=== PATIENT | female | born 1985 | race Caucasian/White ===

== ENCOUNTER → 2017-05-07 13:54 | Outpatient (CLI) | payer OTHER, SELFPAY ==
[2017-05-07 14:27] LABS: hCG Titer Quant., Serum 252 mIU/mL (<9 non-preg)
== END ==
PROVIDERS: Visit Provider Obstetrics & Gynecology
DX: O20.0 Threatened abortion (principal); Z3A.00 Weeks of gestation of pregnancy not specified
CPT/HCPCS: 36415; 84702

== ENCOUNTER → 2017-09-02 16:47 | Outpatient (CLI) | payer OTHER, SELFPAY ==
[2017-09-02 20:05] LABS: Chlamydia Trachomatis by PCR Negative (Negative); Neisserai gonorrhoeae by PCR Negative (Negative); Probe Check PASS; Sample Adequacy Control PASS; Specimen Processing Control PASS
== END ==
PROVIDERS: Visit Provider Obstetrics & Gynecology
DX: Z11.3 Encounter for screening for infections with a predominantly sexual mode of transmission (principal)
CPT/HCPCS: 87491; 87591

== ENCOUNTER → 2017-10-01 16:34 | Outpatient (CLI) | payer OTHER, MEDICAID, SELFPAY ==
[2017-10-01 17:38] LABS: Absolute Lymphocyte Count 3.02 X10^3/ul (0.83-4.51); Absolute Neutrophil Count 9.1 X10^3/uL (2.0-7.7); Basophil# 0.04 X10^3/uL; Basophil% 0.3 % (0-1); Eosinophil# 0.25 X10^3/uL; Eosinophils% 1.9 % (0-5); Hematocrit 38.5 % (37-47); Lymphocyte # 3.02 X10^3/ul (4.0); Lymphocyte % 22.9 % (19-41); Mean Corp Hgb Conc 33.8 g/gl (32-36); Mean Corpuscular Hgb 31.7 pg (27.0-32.0); Mean Corpuscular Volume 93.9 fL (81-99); Mean Platelet Vol. 10.7 fl (6.2-12.0); Monocyte# 0.73 X10^3/uL; Monocyte% 5.5 % (0-10); Platelet Count 252 K/mm3 (150-450); RBC Distribution Width CV 13.3 % (11.6-14.6); White Blood Count 13.2 K/mm3 (4.4-11.0)
[2017-10-01 17:39] LABS: POSITIVE COUNT NO; POSITIVE DIFFERENTIAL NO; POSITIVE MORPHOLOGY NO
[2017-10-01 17:58] LABS: Amphetamine Urine VISTA NEGATIVE (<1000 ng/mL); Barbiturate Urine VISTA NEGATIVE (< 200 ng/mL); Benzodiazepine Urine VISTA NEGATIVE (< 200 ng/mL); Cocaine Urine VISTA NEGATIVE (< 300 ng/mL); Ecstacy Urine VISTA NEGATIVE (< 500 ng/mL); Methadone Urine VISTA NEGATIVE (< 300 ng/mL); PCP Urine VISTA NEGATIVE (< 25 ng/mL); THC Urine VISTA NEGATIVE (< 50 ng/mL); Vista UDS pH Range 6
[2017-10-01 18:05] LABS: Hemoglobin A1c 4.7 % (4.2-6.3)
[2017-10-01 18:08] LABS: Glucose, Dipstick Normal (Normal); Ketone-Dipstick 5 mg/dl (Negative); Leukocyte Esterase-Dipstick 25 /ul (Negative); Nitrite-Dipstick Negative (Negative); Occult Blood-Urine Negative /ul (Negative); Protein-Dipstick 15 mg/dl (Negative); Specific Gravity, Urine 1.025 (1.002-1.030); Urine Bilirubin Dipstick Negative (Negative); Urine Urobilinogen Normal (Normal)
[2017-10-01 18:09] LABS: Thyroid Stim Hormone (TSH) 1.45 uIU/mL (0.358-3.74)
[2017-10-01 18:26] LABS: Color, Urine Yellow (Yellow); Urine Clarity Sl. Cloudy (Clear)
[2017-10-01 19:08] LABS: COTININE Drug Screen Positive (<200 ng/mL)
[2017-10-02 14:01] LABS: HIV - WCH Non-Reactive (Nonreactive); Rubella IgG > 500.0 IU/mL; Vitamin D,25 Hydroxy 18.4 ng/mL (29.95-100.01)
[2017-10-03 08:41] LABS: HEPATITIS B SURFACE AG Negative (Negative); Hep C Antibodies 0.2 s/co ratio (0.0-0.9)
[2017-10-04 03:58] LABS: Prenatal RPR NONREACTIVE (NONREACTIVE)
== END ==
PROVIDERS: Visit Provider Obstetrics & Gynecology
DX: Z34.81 Encounter for supervision of other normal pregnancy, first trimester (principal)
CPT/HCPCS: 36415; 80307; 81002; 82306; 83036; 84443; 85025; 86703; 86762; 86803; 87340

== ENCOUNTER → 2018-01-21 14:26 | Outpatient (CLI) | payer OTHER, MEDICAID, SELFPAY ==
[2016-08-18 12:03] VITALS: BMI 34.3
[2018-01-21 18:00] LABS: Hematocrit 37.6 % (37-47); Hemoglobin 12.3 g/dl (12.0-15.0); Mean Corp Hgb Conc 32.7 g/gl (32-36); Mean Corpuscular Hgb 31.8 pg (27.0-32.0); Mean Corpuscular Volume 97.2 fL (81-99); Platelet Count 281 K/mm3 (150-450); RBC Distribution Width CV 13.9 % (11.6-14.6); RBC Distribution Width SD 47.7 fl (35.1-43.9); Red Blood Count 3.87 M/mm3 (4.2-5.4); White Blood Count 17.4 K/mm3 (4.4-11.0)
[2018-01-21 18:01] LABS: Glucose Challenge Gest 1H 50g 70 mg/dL (70-140); Scan Indicated on CBC? Y/N NO
--- OUTSIDE RECORDS SUMMARY | 2018-03-09 20:14 | XMS RPT_ITS ---
:1985 Author Organization [place] Care Team Providers Name Role Phone PROVIDER, UNKNOWN Referring Unavailable No, PCP Primary Care Unavailable [facility] Attending Unavailable Gisele Yeh Attending Unavailable Gisele Yeh Attending Unavailable Gisele Yeh Attending Unavailable Gisele Yeh Attending Unavailable PROBLEMS PROBLEMS DATE TYPE CONDITION / CODE ATTENDING STATUS SOURCE 01/21/2018 Unknown Z34.83 - Encounter Vini Yeh for supervision of [facility] other normal Hospital , third Repository trimester / Z34.83(ICD-10) 12/12/2017 Unknown Z34.81 - Encounter Vini Yeh for supervision of [facility] other normal Hospital , first Repository trimester / Z34.81(ICD-10) 09/02/2017 Unknown Z11.3 - Encounter Vini Yeh for screening for [facility] infections with a Hospital predominantly Repository sexual mode of transmission / Z11.3(ICD-10) 05/07/2017 Unknown O20.0 - Threatened Vini Yeh / [facility] O20.0(ICD-10) Hospital Repository 05/05/2017 Admitting Hemorrhage in early [facility] Diagnosis , System unspecified / Repository O20.9(ICD-10) 05/05/2017 Admitting Unsp infct of [facility] Diagnosis urinary tract in System , first Repository trimester / O23.41(ICD-10) 05/05/2017 Admitting Maternal care for [facility] Diagnosis oth abnlt of pelvic System organs, first tri / Repository O34.81(ICD-10) 05/05/2017 Admitting Unspecified ovarian Gary [facility] Diagnosis cyst, left side / System N83.202(ICD-10) Repository 05/05/2017 Admitting Less than 8 weeks [facility] Diagnosis gestation of System / Repository Z3A.01(ICD-10) 05/05/2017 Admitting Allergy to other [facility] Diagnosis foods / System Z91.018(ICD-10) Repository PROCEDURES PROCEDURES No Procedure Records FoundRESULTS RESULTS GLUCOSE CHALLENGE GEST Collected: 01/21/2018 Status: F Source: [place]IC 1H 50G 2:20 PM [facility] REPOSITORY TYPE CODE TESTS RESULT OUT OF RANGE REFERENCE UNITS LAB L501.0250 70-140 mg/dL Normal GLU GEST 70 50g 1H Performed By: #### L501.0250 #### [facility] [address] [place], [address] CBC-COMPLETE BLOOD CNT Collected: 01/21/2018 Status: F Source: [place]IC NO DIFF 2:20 PM [facility] REPOSITORY TYPE CODE TESTS RESULT OUT OF RANGE REFERENCE UNITS LAB L100.1000 4.4-11.0 K/mm3 High WBC 17.4 LAB L100.1200 4.2-5.4 M/mm3 Low RBC 3.87 LAB L100.1300 12.0-15.0 g/dl Normal HGB 12.3 LAB L100.1400 37-47 % Normal HCT 37.6 LAB L100.1500 81-99 fL Normal MCV 97.2 LAB L100.1600 27.0-32.0 pg Normal MCH 31.8 LAB L100.1700 32-36 g/gl Normal MCHC 32.7 LAB L100.1810 11.6-14.6 % Normal RDW CV 13.9 LAB L100.1820 35.1-43.9 fl High RDW SD 47.7 LAB L100.1900 150-450 K/mm3 Normal PLT 281 LAB L100.2000 6.2-12.0 fl Normal MPV 11.0 Performed By: #### L100.0500 #### [facility] [address] [place], [address] VITAMIN D,25 HYDROXY Collected: 01/21/2018 Status: F Source: PATRIC 2:20 PM [facility] REPOSITORY TYPE CODE TESTS RESULT OUT OF REFERENCE UNITS RANGE LAB L506.1000 29.95-100.01 ng/mL Low Vitamin D 18.0 25-OH Result Comment: Vitamin D 25(OH) Status Range Deficiency <20 ng/mL (50nmol/L) Insuffciency 20 - 30 ng/mL (50 - 75 nmol/L) Sufficiency 30 - 100 ng/mL (75 - 250 nmol/L) Toxicity >100 ng/mL (>250 nmol/L) Performed By: #### L506.1000 #### [facility] [address] [place], [address] URINE DRUG SCREEN Collected: 10/01/2017 Status: F Source: PATRIC (ANATA) 4:40 PM [facility] REPOSITORY Order Comment: List of Drugs Taken or Suspected? UNK TYPE CODE TESTS RESULT OUT OF RANGE REFERENCE UNITS LAB L505.0075 TO BE Normal CONFIRMED Result Comment: CONFIRMATORY TESTING FOR ALL POSITIVE URINE DRUG SCREEN RESULTS WILL ONLY BE SENT OUT UPON PHYSICIAN ORDER. HILARY Urine Drug Screen methods provide only preliminary analytical test results. A more specific alternate chemical method must be used in order to obtain a confirmed analytical result. Gas chromatography/mass spectrometery (GC/MS) is the preferred confirmatory method. Clinical consideration and professional judgement should be applied to any drug of abuse test result, particularly when preliminary positive results are used. URINE TCA TESTING MUST BE ORDERED SEPARATELY. USE TEST MNEMONIC: [facility] LAB L505.5005 VISTA UDS PH 6 Normal LAB L505.5015 <1000 ng/mL AMPHETAMINES Normal NEGATIVE LAB L505.5025 < 200 ng/mL BARBITIURATES Normal NEGATIVE LAB L505.5035 < 200 ng/mL BENZODIAZIPINE Normal NEGATIVE LAB L505.5045 < 300 ng/mL COCAINE Normal NEGATIVE LAB L505.5055 < 500 ng/mL ECSTACY Normal NEGATIVE LAB L505.5065 < 300 ng/mL METHADONE Normal NEGATIVE LAB L505.5075 < 300 ng/mL OPIATES Normal NEGATIVE LAB L505.5085 < 25 ng/mL PCP Normal NEGATIVE LAB L505.5095 < 50 ng/mL THC Normal NEGATIVE Performed By: #### L505.5000, L505.6240 #### [facility] [address] [place], [place], [id number] NICOTINE URINE DRUG Collected: 10/01/2017 Status: F Source: PATRIC SCREEN 4:40 PM [facility] REPOSITORY Order Comment: List of Drugs Taken or Suspected? UNK TYPE CODE TESTS RESULT OUT OF RANGE REFERENCE UNITS LAB L505.6250 TO BE Normal CONFIRMED Result Comment: CONFIRMATORY TESTING FOR ALL POSITIVE URINE DRUG SCREEN RESULTS WILL ONLY BE SENT OUT UPON PHYSICIAN ORDER. The results of Urine Drug Screen methods provide only preliminary analytical test results. A more specific alternate chemical method must be used in order to obtain a confirmed analytical result. Gas chromatography/mass spectrometery (GC/MS) is the preferred confirmatory method. Clinical consideration and professional judgement should be applied to any drug of abuse test result, particularly when preliminary positive results are used. LAB L505.6270 <200 ng/mL High COT DRG Positive SCREEN Result Comment: Cotinine is the first-stage metabolite of Nicotine. Performed By: #### L505.5000, L505.6240 #### [facility] [address] [place], [address] CBC W/DIFF, AUTOMATED Collected: 10/01/2017 Status: F Source: [place] 4:40 PM [facility] REPOSITORY TYPE CODE TESTS RESULT OUT OF RANGE REFERENCE UNITS LAB L100.1000 4.4-11.0 K/mm3 High WBC 13.2 LAB L100.1200 4.2-5.4 M/mm3 Low RBC 4.10 LAB L100.1300 12.0-15.0 g/dl Normal HGB 13.0 LAB L100.1400 37-47 % Normal HCT 38.5 LAB L100.1500 81-99 fL Normal MCV 93.9 LAB L100.1600 27.0-32.0 pg Normal MCH 31.7 LAB L100.1700 32-36 g/gl Normal MCHC 33.8 LAB L100.1810 11.6-14.6 % Normal RDW CV 13.3 LAB L100.1820 35.1-43.9 fl High RDW SD 44.0 LAB L100.1900 150-450 K/mm3 Normal PLT 252 LAB L100.2000 6.2-12.0 fl Normal MPV 10.7 LAB L100.2100 47-70 % Normal NEUT% 69.0 LAB L100.2200 19-41 % Normal LY% 22.9 LAB L100.2300 0-10 % Normal MONO% 5.5 LAB L100.2400 0-5 % Normal EO% 1.9 LAB L100.2500 0-1 % Normal BASO% 0.3 LAB L100.2550 0.0-0.9 % Normal IM GRAN % 0.400 Result Comment: IG% - Immature Granulocytes (promyelocytes, myelocytes and metamyelocytes) > 1% indicates that a LEFT SHIFT is Present. LAB L100.2620 2.0-7.7 X10 3/uL High Absolute Neut 9.1 LAB L100.2720 0.83-4.51 X10 3/ul Normal Absolute Lymph 3.02 Performed By: #### L100.0100 #### [facility] [address] [place], [place], [id number] HEMOGLOBIN A1C Collected: 10/01/2017 Status: F Source: [place] 4:40 PM [facility] REPOSITORY TYPE CODE TESTS RESULT OUT OF RANGE REFERENCE UNITS LAB L501.9985 4.2-6.3 % Normal HGB A1C 4.7 Performed By: #### L501.9985 #### [facility] [address] [place], [place], [address] THYROID STIM HORMONE Collected: 10/01/2017 Status: F Source: PATRIC (TSH) 4:40 PM [facility] REPOSITORY TYPE CODE TESTS RESULT OUT OF RANGE REFERENCE UNITS LAB L501.9520 0.358-3.74 uIU/mL Normal TSH 1.45 Performed By: #### L501.9520 #### [facility] [address] [place], [address] URINALYSIS, ROUTINE Collected: 10/01/2017 Status: F Source: PATRIC (DIPSTICK) 4:40 PM [facility] REPOSITORY Order Comment: How was Urine Obtained? Urine, Random TYPE CODE TESTS RESULT OUT OF RANGE REFERENCE UNITS LAB L400.3000 Yellow COLOR Normal Yellow LAB L400.3050 Clear Normal CLARITY Sl. Cloudy LAB L400.3200 Normal mg/dl Normal GLUCOSE, UR Normal LAB L400.3300 Negative mg/dL Normal BILIRUBIN URINE Negative LAB L400.3400 Negative mg/dl High 5 KETONE UR LAB L400.3465 1.002-1.030 Normal SP.GR. DIPSTX 1.025 LAB L400.3550 5.0 - 8.0 pH UR Normal 6.0 LAB L400.3600 Negative mg/dl High PROT 15 DIPSTX LAB L400.3700 Normal mg/dl Normal UROBILI Normal LAB L400.3750 Negative Normal NITRITE UR Negative LAB L400.3780 Negative /ul Normal OCCULT BLOOD-UR Negative LAB L400.3800 Negative /ul High LEUK 25 ESTERASE Performed By: #### L400.2010 #### [facility] [address] [facility] [place], [place], [address] T AND S-NO Collected: 10/01/2017 Status: F Source: PATRIC CHARGE W/PNP 4:40 PM [facility] REPOSITORY Order Comment: Reason for Type AND Screen/Red Cells: Surgery? N TYPE CODE TESTS RESULT OUT OF RANGE REFERENCE UNITS LAB B10.0800 O Normal BLOOD POSITIVE TYPE GEL LAB B100.4050 Normal Ab SCREEN NEGATIVE GEL Performed By: #### B100.7550 #### [facility] [address] [place], [address] VITAMIN D,25 HYDROXY Collected: 10/01/2017 Status: F Source: PATRIC 4:40 PM [facility] REPOSITORY TYPE CODE TESTS RESULT OUT OF REFERENCE UNITS RANGE LAB L506.1000 29.95-100.01 ng/mL Low Vitamin D 18.4 25-OH Result Comment: Vitamin D 25(OH) Status Range Deficiency <20 ng/mL (50nmol/L) Insuffciency 20 - 30 ng/mL (50 - 75 nmol/L) Sufficiency 30 - 100 ng/mL (75 - 250 nmol/L) Toxicity >100 ng/mL (>250 nmol/L) Performed By: #### L506.1000, L509.4000, L3890.6005 #### [facility] [address] [place], [address] RUBELLA IGG Collected: 10/01/2017 Status: F Source: [place] 4:40 PM [facility] REPOSITORY TYPE CODE TESTS RESULT OUT OF RANGE REFERENCE UNITS LAB L509.4000 IU/mL Normal Rubella IgG > 500.0 Result Comment: Antibody results Interpretation of Immune Status < 5 IU/ml Presumed Non-immune 5 - < 10 IU/ml Equivocal > or = 10 IU/ml Presumed Immune Performed By: #### L506.1000, L509.4000, L3890.6005 #### [facility] [address] [place], [address] HIV - [facility] Collected: 10/01/2017 Status: F Source: PATRIC 4:40 PM [facility] REPOSITORY TYPE CODE TESTS RESULT OUT OF RANGE REFERENCE UNITS LAB L3890.6005 Nonreactive Normal HIV - [facility] Non-Reactive Performed By: #### L506.1000, L509.4000, L3890.6005 #### [facility] [address] [place], [address] HEPATITIS B SURFACE Collected: 10/01/2017 Status: F Source: PATRIC AG 4:40 PM [facility] REPOSITORY TYPE CODE TESTS RESULT OUT OF RANGE REFERENCE UNITS LAB L3100.0400 Negative Normal HB Negative SURF AG Result Comment: Performed at: [facility] [id number] Sales Support Engineer: Rodrigo Bowman PhD, Phone: [phone] Performed By: #### L3100.0390, L3100.0625 #### [facility] (refer to report for specific site) refer to report for address and phone number HEPATITIS C ANTIBODIES Collected: 10/01/2017 Status: F Source: PATRIC 4:40 PM [facility] REPOSITORY TYPE CODE TESTS RESULT OUT OF RANGE REFERENCE UNITS LAB L3100.0650 0.0-0.9 s/co ratio Normal HEP C AB 0.2 Result Comment: Negative: < 0.8 Indeterminate: 0.8 - 0.9 Positive: > 0.9 The CDC recommends that a positive HCV antibody result be followed up with a HCV Nucleic Acid Amplification test (759365). Performed By: #### L3100.0390, L3100.0625 #### [facility] (refer to report for specific site) refer to report for address and phone number RPR Collected: 10/01/2017 Status: F Source: [place] 4:40 PM [facility] REPOSITORY TYPE CODE TESTS RESULT OUT OF REFERENCE UNITS RANGE LAB L700.5100 NONREACTIVE Normal RPR NONREACTIVE Performed By: #### L700.5100 #### [facility] [address] [facility] [place], [place], [address] CT/NG [facility] BY PCR Collected: 09/02/2017 Status: F Source: [place] 3:55 PM [facility] REPOSITORY TYPE CODE TESTS RESULT OUT OF RANGE REFERENCE UNITS LAB L8200.2100 Negative Normal Chlam Negative Trac PCR LAB L8200.2200 Negative Normal NG by Negative PCR Performed By: #### L8200.2000 #### [facility] [address] [facility] [place], [address] HCG TITER QUANT., Collected: 05/07/2017 Status: F Source: [place] SERUM 1:56 PM [facility] REPOSITORY TYPE CODE TESTS RESULT OUT OF RANGE REFERENCE UNITS LAB L700.8000 <9 non-preg mIU/mL High HCG 252 QUANT. Performed By: #### L700.8000 #### [facility] [address] [place], [address] US Observed: 05/05/2017 Status: F Source: [employer] TRANSVAGINAL 6:10 PM SYSTEM REPOSITORY Patient Name: PAMELA NORTON Ultrasound Exam Date/Time 05/05/2017 18:07:18 EDT Exam US Transvaginal Ordering Physician ARABELLA PASTOR NICOLE A Accession Number [id number] CPT4 Codes 69139 () Reason For Exam vaginal bleeding Report ULTRASOUND PELVIS: CLINICAL INDICATION: Positive test, vaginal bleeding. Quantitative beta hCG of 922. LMP: 03/14/2017 COMPARISON: none TECHNIQUE: Transvaginal evaluation of the pelvis including color flow and spectral Doppler imaging FINDINGS: Uterus: Orientation: Anteverted Size: 7.8 x 4.1 x 4.0 cm Endometrium: 7 mm. There is no evidence of an intrauterine or gestational sac Mass: none Cervix: normal Right Ovary: Size: 2.9 x 1.8 x 1.7 cm Mass: none Cyst: Small cyst measuring 2.1 x 1.6 x 1.3 cm Color flow/Doppler waveform: normal Left Ovary: Size: 2.2 x 2.0 x 1.5 cm Mass: none Cyst: Small hypoechoic lesion measuring 1.4 x 1.3 x 1.1 cm likely representing a hemorrhagic or corpus luteum cyst. Color flow/Doppler waveform: normal Cul-de-sac: No free fluid IMPRESSION: 1. No evidence of intrauterine . Given the quantitative beta hCG levels, these findings are suspicious for failed first trimester , however a very early or nonvisualized ectopic is not excluded. Follow-up quantitative beta hCG levels in 48 hours is recommended. 2. Small left hemorrhagic versus corpus luteum cyst. Report Dictated on Final Dictated: 05/05/2017 6:10 pm Dictating Physician: MD HUIZAR NICHOLAS Signed Date and Time: 05/05/2017 6:13 pm Signed by: MD HUIZAR NICHOLAS Transcribed Date and Time: 05/05/2017 6:10 COMP METABOLIC PANEL Collected: 05/05/2017 Status: F Source: [employer] 4:09 PM SYSTEM REPOSITORY TYPE CODE TESTS RESULT OUT OF REFERENCE UNITS RANGE LAB NA3 137-145 mmol/L Sodium 143 LAB K3 3.5-5.1 mmol/L Potassium 4.3 LAB CL3 98-107 mmol/L Chloride High 108 LAB CO23 22-30 mmol/L Carbon Dioxide 25 LAB ANIN3 Anion Gap 10 LAB GLUC3 70-100 mg/dL Glucose 94 LAB BUN3 7-20 mg/dL Urea Nitrogen 14 LAB CRET3 0.52-1.25 mg/dL Creatinine 0.69 LAB GF3BR >60 mL/min eGFR >60.0 LAB GF3WR >60 mL/min eGFR OTHER >60.0 Result Comment: Source- MDRD equation with creatinine calibration to IDMS(NKDEP) eGFR not recommended for drug dose adjustment LAB CA3 8.4-10.2 mg/dL Calcium 9.1 LAB ALB3 3.5-5.0 g/dL Albumin, Serum 4.1 LAB TP3 6.3-8.2 g/dL Total Protein 7.2 LAB BILT3 0.2-1.3 mg/dL Bilirubin,Total 0.5 LAB ALKP3 38-126 U/L Alkaline Phosphatase 67 LAB ALT3 13-69 U/L ALT (SGPT) 30 LAB AST3 15-46 U/L AST (SGOT) 25 Performed By: #### CMP3, HEMDF, QWNT #### The performing lab is in the report. HEMOGRAM W/ AUTODIFF Collected: 05/05/2017 Status: F Source: [employer] 4:09 PM SYSTEM REPOSITORY TYPE CODE TESTS RESULT OUT OF REFERENCE UNITS RANGE LAB IWBC 3.6-10.7 10*3/uL WBC High 10.9 LAB RBC 3.80-5.20 10*6/uL RBC 4.42 LAB HGB 11.7-16.0 g/dL Hemoglobin 13.7 LAB HCT 35.0-47.0 % Hematocrit 41.6 LAB MCV 79.0-98.0 fL MCV 94.3 LAB MCH 26.0-34.0 pg MCH 31.0 LAB MCHC 32.0-36.0 % MCHC 32.9 LAB RDW 11.5-14.5 % RDW 13.8 LAB PLT 140-440 10*3/uL Platelet 261 LAB MPV 7.4-10.4 fL MPV 9.2 LAB GRAN% 40.0-80.0 % Granulocytes 66.6 LAB LYMP% 20.0-40.0 % Lymphocytes 25.6 LAB MONO% 2.0-10.0 % Monocytes 5.7 LAB EOS% 1.0-6.0 % Eosinophils 1.6 LAB BAS% 0.0-2.0 % Basophils 0.5 LAB ANC 1.8-7.0 10*3/uL Abs High Neutrophile Cnt 7.3 LAB ALC 1.0-4.3 10*3/uL Abs Lymph Cnt 2.8 LAB AMC 0.0-0.8 10*3/uL Abs Monocyte Cnt 0.6 LAB AEC 0.0-0.5 10*3/uL Abs Eosin Cnt 0.2 LAB ABC 0.0-0.2 10*3/uL Abs Baso Cnt 0.1 Performed By: #### CMP3, HEMDF, QWNT #### The performing lab is in the report. HCG QUANTITATIVE Collected: 05/05/2017 Status: F Source: [employer] 4:09 PM SYSTEM REPOSITORY TYPE CODE TESTS RESULT OUT OF RANGE REFERENCE UNITS LAB 3QWNT < 3 m[IU]/mL hCG Abnormal Quantitative 922 Performed By: #### CMP3, HEMDF, QWNT #### The performing lab is in the report. URINALYSIS,MACRO Collected: 05/05/2017 Status: F Source: [employer] 4:09 PM SYSTEM REPOSITORY TYPE CODE TESTS RESULT OUT OF REFERENCE UNITS RANGE LAB APPUR Clear Appearance cloudy LAB COLUR Lt. Yellow Color red LAB USG 1.005-1.030 Specific [place],Urine 1.020 LAB UPH 5.0-8.0 pH,Urine 5.0 LAB ULUK Negative Leukocytes 2+ LAB UNIT Negative Nitrites NEG LAB UPRO Negative mg/dL Total Protein,Urine 75 LAB UGLU Negative mg/dL Glucose,Urine NORM LAB UKET Negative mg/dL Ketone,Urine NEG LAB UURO 0-1 mg/dL Urobilinogen NORM LAB UBIL Negative Bilirubin,Ur NEG LAB UBLD Negative {RBC}/uL Occult Blood,Ur 250 Performed By: #### UAMAC #### The performing lab is in the report. Observed: 05/05/2017 Status: F Source: [facility] TS GEL 4:09 PM SYSTEM REPOSITORY ABO Group: O Rh, Gel: POS Antibody Screen Gel: NEG Performed By: #### TSGL #### [address] [address] Observed: 05/05/2017 Status: F Source: [facility] CULTURE URINE 4:09 PM SYSTEM REPOSITORY CULTURE URINE --> Status: F Normal urogenital ivan present. Performed By: #### C/UR #### The performing lab is in the report. ALLERGIES ALLERGIES DATE TYPE / CODE NAME / CODE REACTION SEVERITY SOURCE 08/18/2016 Drug strawberry/F Other Unknown [facility] Allergy/4160 [id number]( Hospital [address]329(SNOMED NORM) Repository CT) ENCOUNTERS ENCOUNTERS ADMIT/DISCHARGE ACCOUNT NUMBER ADMITTING ENCOUNTER LOCATION SOURCE CLASS 01/21/2018 [id number] [facility] ding:WOBLAB Repository 10/01/2017 [id number] [facility] ding:WOBLAB Repository 09/02/2017 [id number] [facility] ding:LABSPEC Repository 05/07/2017 [id number] [facility] ding:WOBLAB Repository 05/05/2017 [id number] [facility] [place] [address] ERRoom: System [id number]: Repository [id number] PAYERS PAYERS ENCOUNTER GUARANTOR PAYER SUBSCRIBER SOURCE 01/21/2018 PAMELA R Primary PAMELA R [place] [id number] Insurance:[facility]: [facility] [id number] Number: Repository [address]Boo: [phone] [id number] [phone] () Date:[id number] [address] [place] [phone]: 01/21/2018 Secondary PAMELA R [place] Insurance:CARESOURCEP [facility] Number: [id number] Hospital [id number] Repository Date:2018-01-21[address]ATTN: [place] [address]UO: 01/21/2018 Tertiary NOT GIVENUNK [place] Insurance:SELF PAY [facility] Number: Effective Repository Date:2018-01-21 10/01/2017 Pamela R Primary Pamela R [place] [id number] Insurance:MEDICAL WinebrennerDOB: [facility] [id number] Number: Repository [id number]: [phone] [id number] [phone] (HP) Date:9912-41-96VN [address] [place] [phone]: 10/01/2017 Secondary Pamela R [place] Insurance:[facility] CENTERINAPol WinebrennerDOB: Community y Number: [id number] Hospital [id number] Repository Date:6506-71-99FU [address] [place] [address]GE: 10/01/2017 Tertiary NOT GIVENUNK [place] Insurance:SELF PAY [facility] Number: Effective Repository Date:2017-10-01 09/02/2017 Pamela R Primary Pamela R [place] [id number] Insurance:MEDICAL WinebrennerDOB: [facility] [id number] Number: Repository [address]Kdp: 330 [id number] [phone] (HP) Date:6327-32-13MC [address] [place] [phone]: 09/02/2017 Secondary NOT GIVENUNK [place] Insurance:SELF PAY [facility] Number: Effective Repository Date:2017-09-02 05/07/2017 Pamela R Primary Pamela R [place] [id number] Insurance:MEDICAL WinebrennerDOB: [facility] [id number] Number: Repository [id number]: [phone] [id number] [phone] () Date:3240-76-85AY [address], [place] [address]RZ: 05/07/2017 Secondary NOT GIVENUNK [place] Insurance:SELF PAY [facility] Number: Effective Repository Date:2017-05-07 05/05/2017 [facility] System [id number] [facility] [id number] Repository [address] [facility] Number: Effective [facility] Date: [address]Tua: ()
== END ==
PROVIDERS: Visit Provider Obstetrics & Gynecology
DX: Z34.83 Encounter for supervision of other normal pregnancy, third trimester (principal)
CPT/HCPCS: 36415; 82306; 82950; 85027

== ENCOUNTER → 2018-03-10 16:45 | Outpatient (CLI) | payer OTHER, MEDICAID, SELFPAY ==
[2016-08-18 12:03] VITALS: BMI 34.3
== END ==
PROVIDERS: Visit Provider Obstetrics & Gynecology
DX: Z36.85 Encounter for antenatal screening for Streptococcus B (principal)
CPT/HCPCS: 87081

== ENCOUNTER 2018-04-18 07:05 | Inpatient (IN) | payer OTHER, MEDICAID, SELFPAY ==
[2016-08-18 12:03] VITALS: BMI 34.3
[2018-04-18] MEDS: miSOPROStol 25 MCG TABLET PO (08:00)
[2018-04-18] MEDS: Lactated Ringers 1,000 ML 50 ML IV ×3 (08:00→22:30)
[2018-04-18 08:01] VITALS: BMI 43.2
[2018-04-18 08:06] LABS: Hematocrit 37.5 % (37-47); Mean Corpuscular Hgb 30.7 pg (27.0-32.0); Mean Corpuscular Volume 95.9 fL (81-99); Mean Platelet Vol. 10.9 fl (6.2-12.0); Platelet Count 292 K/mm3 (150-450); RBC Distribution Width CV 14.9 % (11.6-14.6); RBC Distribution Width SD 51.7 fl (35.1-43.9); Red Blood Count 3.91 M/mm3 (4.2-5.4); White Blood Count 13.1 K/mm3 (4.4-11.0)
[2018-04-18 08:12] LABS: Scan Indicated on CBC? Y/N NO
--- NOTE | 2018-04-18 13:21 | PCM.PN.BLA ---
Progress Note LABOR PROGRESS NOTE Not feeling contractions. + FM, no complaints. AVSS GEN - NAD, AAO x 3 FHR 135, moderate variability, + accelerations, occasional late deceleration or prolonged deceleration TOCO 1-2/10 min SVE 2/50/-2, moderate and midposition A/P: 33yo G1 @ 41wga, IOL with Cat I - II FHR -Amniotomy performed with ISE placement - no significant fluid, will monitor. -Plan to start pitocin if no significant contractions in 1-2 hours
[2018-04-18] MEDS: Oxytocin 30 units/NS 500 ml 30 UNITS/500 ML IV.SOLN IV (15:09)
[2018-04-18] MEDS: Amnioinfusion- 0.9% NS 1,000 ML IV.SOLN. INTRA-UTER (19:09)
--- NOTE | 2018-04-18 19:10 | PCM.PN.BLA ---
Progress Note LABOR PROGRESS NOTE Contractions have intensified. AVSS GEN - NAD, AAO x 3 FHR 145, moderate variability, + accelerations, + prolonged deceleration to 70s bpm. TOCO - contractions poorly traced SVE 3.5/60/-3, ISE in situ A/P: 33yo G1 @ 41wga, IOL with Cat II FHR -IUPC placed -Start amnioinfusion -Will maintain pitocin at this time and monitor closely
[2018-04-18] MEDS: fentaNYL-bupivacaine (epidural) 100 ML BAG EPIDURAL (20:56)
--- NOTE | 2018-04-18 21:18 | PCM.PN.BLA ---
Progress Note Strip reviewed Informed by RN patient immediately s/p epidural placement. AVSS FHR 130, moderate variability, + accelerations, + prolonged decelerations TOCO 1-3/ 10 min Will continue to monitor without pitocin. Plan SVE within next hour.
[2018-04-19] VITALS (27 sets, daily range): BP systolic 107–127; BP diastolic 58–77; PULSE 73–101; RESP 16–18; TEMP 36.6–37.9; O2SAT 96–100
[2018-04-19] MEDS: Sodium Citrate/Citric Acid 30 ML UDC PO (00:30)
--- NOTE | 2018-04-19 00:37 | PCM.PN.BLA ---
Progress Note LABOR PROGRESS NOTE Patient comfortable with epidural. No complaints. AVSS GEN - NAD, AAO x 3 FHR 140, moderate variability, + accelerations, + prolonged deceleration TOCO 2-3/10 min SVE 4/60/-2, midposition, moderate A/P: 33yo G1 @ 41 1/7wga with Cat II FHR -Pitocin discontinued. I advised section given intolerance for pitocin and not yet in active labor and remote from delivery. Discussed continued resuscitative measures and observation without pitocin as an alternative, however, cannot guarantee no need for emergent section at that time. Reviewed with patient risks including pain, infection, bleeding, hemorrhage, possibly requiring dilation and curettage or hysterectomy, injury to bowel or urinary system, possible need for further surgery, scarring. Following discussion, pt agreeable to proceed at this time. Patient and partner given opportunity to ask questions and questions answered to their satisfaction.
[2018-04-19] MEDS: Oxytocin 30 units/NS 500 ml 30 UNITS/500 ML IV.SOLN 167 UNITS IV (01:04)
--- NOTE | 2018-04-19 01:47 | OP.PCM_ITS ---
Problem List (1) 41 weeks gestation of Status: Acute (2) intolerance to labor, delivered, current hospitalization Status: Acute Report of Operation Date of Procedure: 04/19/18 Pre-Operative Diagnosis: 41 1/7wga, intolerance to labor, Cat II FHR Post-Operative Diagnosis: 41 1/7wga, intolerance to labor, Cat II FHR Surgery/Procedure Performed:: Primary low transverse section Description of Surgical Findings:: Normal adnexa bilaterally, normal uterus MALE , weight 3620g dining car steward: Ruben Armijo Type of Anesthesia:: Epidural Anesthesiologist: Monalisa Chisholm Specimen's removed: placenta Estimated Blood Loss (mL): 500 Fluids Replaced: 1000 ml - Admit VTE Documentation VTE Present on Admission: No VTE Mechan Device Prophylaxis: SCD's VTE Pharm Prophylaxis ordered?: No Delivery Classification: JAMIE Final BRIDGETTE: 04/11/18 Gestational age: 41 Weeks and 1 Days Indications: 33yo G1 @ 41 1/7wga who presented for late term induction of labor. She received cytotec x 1, then followed by amniotomy and pitocin. She progressed to 4cm dilation however had prolonged decelerations with increasing frequency with some improvement with repositioning and discontinuation of pitocin; however, the prolonged decelerations again recurred with additional pitocin administration. I advised section as she was remote from delivery. risks, benefits, indications and alternatives were reviewed and she desired to proceed. Patient and family given opportunity to ask questions and questions answered to their satisfaction. Indications for : - - intolerance to labor Description of Procedure: The patient was taken to the operating room and spinal analgesia was administered. She is placed in a dorsal supine position with left lateral tilt. The perineum and abdomen were prepped and draped in sterile fashion. And the spinal was found to be adequate. A Pfannenstiel incision was made using a scalpel and brought down to incise the subcutaneous tissue and rectus fascia at the midline. Subcutaneous tissue was bluntly dissected off the fascia laterally. The fascial incision was dissected laterally and cephalad using curved Apple scissors. The superior leaflet of the rectus fascia was grasped using Duke clamps and bluntly dissected and sharply dissected from the underlying rectus muscle. In a similar fashion the inferior rectus fascia was dissected from the underlying muscle. The rectus muscles were bluntly at the midline. The peritoneum was identified and entered [sharply]. The bladder blade was placed into the abdomen and the vesicouterine peritoneal fold identified. The fold was incised and a bladder flap created. Bladder blade was then repositioned to the abdomen. A low transverse hysterotomy was made using the [Metzenbaum scissors] to level of the membranes. The hysterotomy was extended bluntly cephalad and caudad. The membranes were then ruptured revealing clear fluid. The head was elevated and brought to the level of the hysterotomy and the infant delivered revealing vigorous [male] . The cord was doubly clamped and cut after 30 seconds. The was passed to awaiting [nursery personnel]. The placenta was [expressed] from the uterus and appeared intact on inspection. The uterus was cleared of debris. The hysterotomy was then repaired using 0 Vicryl running lock suture. A second imbricating layer was also placed for additional hemostasis. The bladder blade was removed. The anterior cul-de-sac was cleared of debris. The peritoneum and rectus muscles were reapproximated using 2-0 Vicryl running suture. The rectus fascia was closed using 0 Vicryl running suture. The subcutaneous tissue was sponge irrigated and small capillary bleeding controlled using the Bovie device. The subcutaneous tissue was reapproximated using 2-0 Vicryl. The skin was closed using 4-0 Monocryl subcuticularly. This was followed by Cavilon and a Mepilex occlusive dressing was placed over the incision. The fundus was firm. The patient was then transferred to the recovery room without complication. Sponge, instrument, and needle counts were correct ?2. Amniotic Membrane Rupture Type: Artificial Amniotic Fluid Description: Clear Placenta Disposition: [facility] Drain: Riggins to straight drain Cord Entanglement: None Nuchal Cord Compression: Without compression Cord Vessel Description: 3 Vessels Infant Gender: Male (1 minute): 8 (5 minute): 9 Delayed cord clamping: Yes Pre-op Antibiotic Given: Ancef 2 grams IV x1 Pt instructed on risks of surgery: Bleeding, Anesthesia Risks, Infection, Injury to surrounding structure(s) including bowel and bladder Complications: None - Admit VTE Documentation VTE Present on Admission: No VTE Mechan Device Prophylaxis: SCD's VTE Pharm Prophylaxis ordered?: No
[2018-04-19] MEDS: Cefazolin 2 GM in 0.9% Normal Saline 100 ML IV (01:50)
[2018-04-19] MEDS: Lactated Ringers 1,000 ML 100 ML IV ×3 (01:54→16:27)
--- NOTE | 2018-04-19 02:26 | PCM.DCCSEC ---
Discharge Diet: No Restrictions Discharge Activity: Return to Normal Activity, May Not Drive - for 2 weeks or while taking narcotic pain meds., May Shower May resume sexual activity in: 6 weeks Additional Activity Instructions:: 10 lb Call your doctor if your incision/area has: Continuous Slow Oozing, Sudden Increased Bleeding, Increased Pain/ Swelling, Increased Redness, Foul Smelling Discharge Call your doctor if you observe: Fever of 101 or Higher, Inability to urinate, Inability to have a bowel movement, Using more than one pad per hour, Shortness of breath, Chest pain, Calf discomfort, Uncontrolled pain Suture Line Care: Avoid Pulling/Pushing Cleanse incision/area with: Soap & Water Additional Instructions: If you experience any of the following, contact your healthcare provider. Bleeding that soaks a pad every hour for 2 hours Fever 100.4 or higher Unrelieved incision or abdominal pain Swelling, redness, discharge or bleeding from your incision or episiotomy site Your incision begins to separate Problems urinating (including inability to urinate or burning while urinating). Visual changes Severe headache Flu-like symptoms Pain or redness in one of both of your breasts Pain, warmth, tenderness or swelling in your legs, especially the calf area Frequent nausea and vomiting Symptoms of depression or anxiety If you experience any of the following, call 911 or go to the nearest Emergency Room. Chest pain Problems breathing Seizure activity Partial or complete paralysis of a body part, slurred speech, weakness or drooping of the face, or a sudden inability to walk or hold your balance Allergies/Adverse Reactions: Allergies strawberry [[place]] Allergy (Verified 08/18/16 12:05) Other Medications to take at Discharge Diphenhydramine HCl [Benadryl Allergy] 25 mg PO 04/18/18 Vit No.130/Iron/Folic [ Tablet] 1 each PO 04/18/18 Docusate Sodium [Colace] 100 mg PO BID PRN PRN #60 capsule 04/19/18 Ibuprofen [Motrin] 600 mg PO Q8H PRN PRN #30 tablet 04/19/18 Oxycodone [Oxyir] 5 mg PO Q6H PRN PRN 7 Days #20 tablet 04/19/18 Vit D3/Folic Acid/B2/B6/B12 [Folgard Tablet] 1 each PO DAILY #0 04/19/18 The following prescriptions were given: Oxycodone [Oxyir] 5 mg PO Q6H PRN PRN 7 Days #20 tablet PRN Reason: Pain Ibuprofen [Motrin] 600 mg PO Q8H PRN PRN #30 tablet PRN Reason: Pain Docusate Sodium [Colace] 100 mg PO BID PRN PRN #60 capsule PRN Reason: Constipation Follow-Up: Call to make an appointment with your doctor for an incision check in 1-2 weeks. You will also need a 6 week post- follow up appointment. Test results from this visit will be discussed in further detail at your follow-up appointment, if applicable. Please Follow Up With: Gisele Yeh MD When: 1-2 weeks for incision check
--- NOTE | 2018-04-19 02:30 | DCINST_ITS ---
Discharge Diet: No Restrictions Discharge Activity: Return to Normal Activity, May Not Drive - for 2 weeks or while taking narcotic pain meds., May Shower May resume sexual activity in: 6 weeks Additional Activity Instructions:: 10 lb Call your doctor if your incision/area has: Continuous Slow Oozing, Sudden Increased Bleeding, Increased Pain/ Swelling, Increased Redness, Foul Smelling Discharge Call your doctor if you observe: Fever of 101 or Higher, Inability to urinate, Inability to have a bowel movement, Using more than one pad per hour, Shortness of breath, Chest pain, Calf discomfort, Uncontrolled pain Suture Line Care: Avoid Pulling/Pushing Cleanse incision/area with: Soap & Water Additional Instructions: If you experience any of the following, contact your healthcare provider. * Bleeding that soaks a pad every hour for 2 hours * Fever 100.4 or higher * Unrelieved incision or abdominal pain * Swelling, redness, discharge or bleeding from your incision or episiotomy site * Your incision begins to separate * Problems urinating (including inability to urinate or burning while urinating). * Visual changes * Severe headache * Flu-like symptoms * Pain or redness in one of both of your breasts * Pain, warmth, tenderness or swelling in your legs, especially the calf area * Frequent nausea and vomiting * Symptoms of depression or anxiety If you experience any of the following, call 911 or go to the nearest Emergency Room. * Chest pain * Problems breathing * Seizure activity * Partial or complete paralysis of a body part, slurred speech, weakness or drooping of the face, or a sudden inability to walk or hold your balance Allergies/Adverse Reactions: Allergies strawberry [[place]] Allergy (Verified 08/18/16 12:05) Other Medications to take at Discharge Diphenhydramine HCl [Benadryl Allergy] 25 mg PO 04/18/18 Vit No.130/Iron/Folic [ Tablet] 1 each PO 04/18/18 Docusate Sodium [Colace] 100 mg PO BID PRN PRN #60 capsule 04/19/18 Ibuprofen [Motrin] 600 mg PO Q8H PRN PRN #30 tablet 04/19/18 Oxycodone [Oxyir] 5 mg PO Q6H PRN PRN 7 Days #20 tablet 04/19/18 Vit D3/Folic Acid/B2/B6/B12 [Folgard Tablet] 1 each PO DAILY #0 04/19/18 The following prescriptions were given: Oxycodone [Oxyir] 5 mg PO Q6H PRN PRN 7 Days #20 tablet PRN Reason: Pain Ibuprofen [Motrin] 600 mg PO Q8H PRN PRN #30 tablet PRN Reason: Pain Docusate Sodium [Colace] 100 mg PO BID PRN PRN #60 capsule PRN Reason: Constipation Follow-Up: Call to make an appointment with your doctor for an incision check in 1-2 weeks. You will also need a 6 week post- follow up appointment. Test results from this visit will be discussed in further detail at your follow- up appointment, if applicable. Please Follow Up With: Gisele Yeh MD When: 1-2 weeks for incision check
--- NOTE | 2018-04-19 05:23 | NURSING ---
epidural catheter removed, blue tip intact
[2018-04-19] MEDS: Ketorolac 30 MG/ML Syringe IV ×3 (06:56→18:48)
--- NOTE | 2018-04-19 08:35 | PCM.PN.BLA ---
Progress Note Pamela is sore this morning, but no other complaints. Denies heavy lochia, nausea, vomiting. Tolerates liquids. AVSS, GEN - NAD. is nursing well. Reviewed plan of care - OOB to chair, will consider spangler discontinuation this evening. Routine postop care.
[2018-04-19] MEDS: Prenatal Vits Tablet 1 TABLET PO (13:11)
[2018-04-20] MEDS: Ketorolac 30 MG/ML Syringe IV ×4 (00:47→19:51)
[2018-04-20] MEDS: 0.9% Saline Lock 10 ML Syringe IV ×2 (00:50→19:52)
[2018-04-20 01:00] VITALS: BP 121/76; PULSE 86; RESP 18; TEMP 37.1; O2SAT 97
[2018-04-20] MEDS: oxyCODONE 5 MG Tablet PO ×3 (03:18→19:23)
[2018-04-20 06:42] LABS: Hematocrit 33.8 % (37-47); Hemoglobin 10.8 g/dl (12.0-15.0); Mean Corpuscular Hgb 30.9 pg (27.0-32.0); Mean Corpuscular Volume 96.8 fL (81-99); Mean Platelet Vol. 10.7 fl (6.2-12.0); Platelet Count 256 K/mm3 (150-450); RBC Distribution Width CV 15.1 % (11.6-14.6); RBC Distribution Width SD 53.2 fl (35.1-43.9); Red Blood Count 3.49 M/mm3 (4.2-5.4); White Blood Count 17.1 K/mm3 (4.4-11.0)
[2018-04-20 06:45] LABS: Scan Indicated on CBC? Y/N NO
[2018-04-20 08:25] VITALS: BP 111/62; PULSE 83; RESP 16; TEMP 36.9; O2SAT 99
--- NOTE | 2018-04-20 09:36 | PN.OBGYN_ITS ---
Patient Problems: Active and Suspected Problems delivery delivered (Acute) 41 weeks gestation of (Acute) intolerance to labor, delivered, current hospitalization (Acute) Subjective: Pain is manageable and improved with abdominal binding. +flatus. Tolerates a regular diet. Voids without difficulty. Infant is nursing well. Denies heavy lochia. Objective: AVSS - Physical Exam General: Alert, Oriented x3, Cooperative, No apparent distress HEENT: Atraumatic, Normocephalic Lungs: Clear to auscultation, Normal air movement Cardiovascular: Regular rate, Regular Rhythm, Normal S1, Normal S2 Abdomen: Bowel Sounds Present, Soft, Non Tender, Non-Distended, - - Fundus firm and nontender, incisional dressing c/d/i Extremities: No edema, No Calf Tenderness Neurological: Neuro grossly intact Psych/Mental Status: Normal Affect, Appropriate, Alert and oriented to time, p lace, person, mood and affect Vital Signs Temp Pulse Resp BP Pulse Ox 98.4 F 83 16 111/62 99 04/20/18 08:25 04/20/18 08:25 04/20/18 08:25 04/20/18 08:25 04/20/18 08:25 Oxygen Delivery Method Room Air Weight: 110.7 kg Body Mass Index (BMI) 43.2 Intake and Output for Last 24 Hours 04/18/18 04/19/18 04/21/18 23:59 23:59 00:59 Intake Total 2699 / 2699 4450 / 4450 869 / 869 Output Total 1150 / 1150 3225 / 3225 1300 / 1300 Balance 1549 / 1549 1225 / 1225 -431 / -431 Laboratory Tests Past 24 Hrs 04/20/18 06:15 WBC 17.1 H RBC 3.49 L Hgb 10.8 L Hct 33.8 L MCV 96.8 MCH 30.9 MCHC 32.0 RDW 15.1 H RDW Differential 53.2 H Plt Count 256 MPV 10.7 Medical Necessity - Tobacco Use Smoking Status: Former smoker Assessment/Plan All Active Problems delivery delivered (Acute) 41 weeks gestation of (Acute) intolerance to labor, delivered, current hospitalization (Acute) 33yo POD#1 s/p PLTCS doing well. -Rh positive - -Routine postp care
--- NOTE | 2018-04-20 09:52 | PCM.DC.SUM ---
Discharge Date and Diagnosis - Problem List Patient Problems: Active and Suspected Problems delivery delivered (Acute) 41 weeks gestation of (Acute) intolerance to labor, delivered, current hospitalization (Acute) Date of Admission: 05/03/12 - Primary Discharge Diagnosis Active and Suspected Problems delivery delivered (Acute) 41 weeks gestation of (Acute) intolerance to labor, delivered, current hospitalization (Acute) - Secondary Discharge Diagnosis Chronic Problems Tobacco use disorder (Chronic) Sepsis (Chronic) Orthostatic hypotension (Chronic) Dental abscess (Chronic) Hospital Course and Treatment Operations: - - Cesaean section Procedures: None Summary of Care Provided: The patient is a 33 year old F admitted at 41 weeks gestational age for scheduled induction of labor. She progressed to 3-4cm dilation however had recurrent heart rate decelerations thus underwent a section for intolerance of labor on hospital day #2. Her surgery was uncomplicated. Her postop course was unremarkable. She was discharged to home on postop day #2. Patient Problems: Active and Suspected Problems delivery delivered (Acute) 41 weeks gestation of (Acute) intolerance to labor, delivered, current hospitalization (Acute) - Physical Exam Vital Signs Temp Pulse Resp BP Pulse Ox 98.4 F 83 16 111/62 99 04/20/18 08:25 04/20/18 08:25 04/20/18 08:25 04/20/18 08:25 04/20/18 08:25 Oxygen Delivery Method Room Air Weight: 110.7 kg Body Mass Index (BMI) 43.2 Intake and Output for Last 24 Hours 04/18/18 04/19/18 04/21/18 23:59 23:59 00:59 Intake Total 2699 / 2699 4450 / 4450 869 / 869 Output Total 1150 / 1150 3225 / 3225 1300 / 1300 Balance 1549 / 1549 1225 / 1225 -431 / -431 Laboratory Tests Past 24 Hrs 04/20/18 06:15 WBC 17.1 H RBC 3.49 L Hgb 10.8 L Hct 33.8 L MCV 96.8 MCH 30.9 MCHC 32.0 RDW 15.1 H RDW Differential 53.2 H Plt Count 256 MPV 10.7 Discharge Diet: No Restrictions Discharge Activity: Return to Normal Activity, May Not Drive - for 2 weeks or while taking narcotic pain meds., May Shower May resume sexual activity in: 6 weeks Additional Activity Instructions:: 10 lb Call your doctor if your incision/area has: Continuous Slow Oozing, Sudden Increased Bleeding, Increased Pain/ Swelling, Increased Redness, Foul Smelling Discharge Call your doctor if you observe: Fever of 101 or Higher, Inability to urinate, Inability to have a bowel movement, Using more than one pad per hour, Shortness of breath, Chest pain, Calf discomfort, Uncontrolled pain Suture Line Care: Avoid Pulling/Pushing Cleanse incision/area with: Soap & Water Home Medications: Medications to take at Discharge RX: Diphenhydramine HCl [Benadryl Allergy] 25 mg PO 04/18/18 RX: Vit No.130/Iron/Folic [ Tablet] 1 each PO 04/18/18 Docusate Sodium [Colace] 100 mg PO BID PRN PRN #60 capsule 04/19/18 RX: Ibuprofen [Motrin] 600 mg PO Q8H PRN PRN #30 tablet 04/19/18 RX: Oxycodone [Oxyir] 5 mg PO Q6H PRN PRN 7 Days #20 tablet 04/19/18 RX: Vit D3/Folic Acid/B2/B6/B12 [Folgard Tablet] 1 each PO DAILY #0 04/19/18 Following Prescrptions Were Given to Patient: RX: Oxycodone [Oxyir] 5 mg PO Q6H PRN PRN 7 Days #20 tablet PRN Reason: Pain RX: Ibuprofen [Motrin] 600 mg PO Q8H PRN PRN #30 tablet PRN Reason: Pain Docusate Sodium [Colace] 100 mg PO BID PRN PRN #60 capsule PRN Reason: Constipation Please Follow Up With: Gisele Yeh MD When: 1-2 weeks for incision check Medical Necessity - Tobacco Use Smoking Status: Former smoker Meaningful Use Info Meaningful Use Diagnoses (Choose all that apply): None applicable
[2018-04-20] MEDS: Prenatal Vits Tablet 1 TABLET PO (11:08)
--- NOTE | 2018-04-20 12:48 | NURSING ---
Report given to Angi Lew and Juainta George RN. I will assume care of patient at this time.
[2018-04-20 14:46] VITALS: BP 123/75; PULSE 76; RESP 18; TEMP 36.8
[2018-04-20 19:50] VITALS: BP 124/73; PULSE 82; RESP 16; TEMP 37.1; O2SAT 96
[2018-04-21] MEDS: 0.9% Saline Lock 10 ML Syringe IV (01:39)
[2018-04-21] MEDS: Ketorolac 30 MG/ML Syringe IV (01:39)
[2018-04-21 01:45] VITALS: BP 118/83; PULSE 97; RESP 16; TEMP 37.4; O2SAT 96
[2018-04-21] MEDS: oxyCODONE 5 MG Tablet PO ×2 (07:28→14:10)
[2018-04-21] MEDS: Acetaminophen 325 MG Tablet PO (08:39)
[2018-04-21 09:00] VITALS: BP 124/81; PULSE 96; RESP 16; TEMP 37.4; O2SAT 97
--- NOTE | 2018-04-21 09:05 | PCM.PN.OB ---
Patient Problems: Active and Suspected Problems delivery delivered (Acute) 41 weeks gestation of (Acute) intolerance to labor, delivered, current hospitalization (Acute) Subjective: No issues overnight. She feels well, denies heavy lochia. Passing flatus, no bowel movement yet. Pain controlled. Objective: AVSS - Physical Exam General: Alert, Oriented x3, Cooperative, No apparent distress HEENT: Atraumatic, Normocephalic Lungs: Clear to auscultation, Normal air movement Cardiovascular: Regular rate, Regular Rhythm, Normal S1, Normal S2 Abdomen: Bowel Sounds Present, Soft, Non Tender, Non-Distended, - - fundus firm and nontender, incisional dressing c/d/i Extremities: No Calf Tenderness, - - + b/l pedal edema Neurological: Neuro grossly intact Psych/Mental Status: Normal Affect, Appropriate, Alert and oriented to time, place, person, mood and affect Vital Signs Temp Pulse Resp BP Pulse Ox 99.3 F H 96 16 124/81 H 97 04/21/18 09:00 04/21/18 09:00 04/21/18 09:00 04/21/18 09:00 04/21/18 09:00 Oxygen Delivery Method Room Air Weight: 110.7 kg Body Mass Index (BMI) 43.2 Intake and Output for Last 24 Hours 04/19/18 04/20/18 04/21/18 22:59 23:59 23:59 Intake Total Output Total Balance Medical Necessity - Tobacco Use Smoking Status: Former smoker Assessment/Plan All Active Problems delivery delivered (Acute) 41 weeks gestation of (Acute) intolerance to labor, delivered, current hospitalization (Acute) 33yo POD#2 s/p PLTCS doing well. -Rh positive - -Routine postp care -d/c home today
[2018-04-21] MEDS: Prenatal Vits Tablet 1 TABLET PO (09:45)
[2018-04-21 14:31] VITALS: BP 128/87; PULSE 95; RESP 16; TEMP 37; O2SAT 97
--- NOTE | 2018-04-27 14:22 | NURSING ---
Follow up phone call no answer voicemail left.
== END 2018-04-21 14:20 | disposition home or self-care (01) | DRG 788 ==
PROVIDERS: Admitting Provider Obstetrics & Gynecology; Referring Provider Obstetrics & Gynecology; Visit Provider Obstetrics & Gynecology
DX: O76 Abnormality in fetal heart rate and rhythm complicating labor and delivery (principal); Z3A.41 41 weeks gestation of pregnancy; Z37.0 Single live birth; O48.0 Post-term pregnancy; Z87.891 Personal history of nicotine dependence
CPT/HCPCS: 59050; 85027; 86850; 86900; 99218; J7030; J7120; A4216; G0378; J2405

== ENCOUNTER → 2018-05-22 16:10 | Outpatient (CLI) | payer OTHER, MEDICAID, SELFPAY ==
[2018-05-27 12:30] LABS: HPV Reflexed? NOT INDICATED
== END ==
PROVIDERS: Visit Provider Obstetrics & Gynecology
DX: Z12.4 Encounter for screening for malignant neoplasm of cervix (principal)
CPT/HCPCS: 88175; G0145

== ENCOUNTER → 2018-12-17 14:21 | Outpatient (CLI) | payer OTHER, SELFPAY ==
[2018-12-17 15:28] LABS: Absolute Lymphocyte Count 2.81 X10^3/uL (0.83-4.51); Absolute Neutrophil Count 5.4 X10^3/uL (2.0-7.7); Basophil# 0.09 X10^3/uL; Eosinophil# 0.34 X10^3/uL; Eosinophils% 3.7 % (0-5); Hematocrit 44.3 % (37-47); Hemoglobin 14.2 g/dL (12.0-15.0); Lymphocyte # 2.81 X10^3/ul (4.0); Lymphocyte % 30.8 % (19-41); Mean Corp Hgb Conc 32.1 g/dL (32-36); Mean Corpuscular Hgb 30.1 pg (27.0-32.0); Mean Corpuscular Volume 93.9 fL (81-99); Mean Platelet Vol. 10.2 fl (6.2-12.0); Monocyte# 0.46 X10^3/uL; NRBC Flagged by Analyzer 0 % (0-5); Neutrophil # 5.38 X10^3/uL (2.7-7.7); Platelet Count 317 K/mm3 (150-450); RBC Distribution Width CV 13.5 % (11.6-14.6); RBC Distribution Width SD 46.1 fl (35.1-43.9); Red Blood Count 4.72 M/mm3 (4.2-5.4); White Blood Count 9.1 K/mm3 (4.4-11.0)
[2018-12-17 16:04] LABS: Erythrocyte Sedimentation Rate 19 mm/hr (0-20)
[2018-12-17 16:30] LABS: Vitamin B12 762 pg/mL (211-911); Vitamin D,25 Hydroxy 19.4 ng/mL (29.95-100.01)
[2018-12-17 16:38] LABS: ALB/GLOB Ratio 0.9 RATIO (0.9-2.4); AST(SGOT) 14 U/L (15-37); Alanine Aminotransfer ALT/SGPT 26 U/L (13-56); Albumin, Serum 3.7 g/dL (3.2-5.0); Alkaline Phosphatase 81 U/L (45-117); Anion Gap 4 (5-15); BUN 10 mg/dL (7-18); BUN/Creat Ratio 14.9 RATIO (10-20); Calcium,Total 8.6 mg/dL (8.5-10.1); Chloride 108 mmol/L (98-107); Creatinine, Serum 0.67 mg/dL (0.55-1.02); EST Glomerular Filtration Rate 107 mL/min (>60); Est Glom Filt Rate - Afr Amer 130 mL/min (>60); Globulin 3.9 g/dL (2.2-4.2); Glucose 84 mg/dL (74-106); Iron 37 ug/dL (50-170); Potassium 3.7 mmol/L (3.5-5.1); Protein, Total 7.6 g/dL (6.4-8.2); Sodium Level 140 mmol/L (136-145); Thyroid Stim Hormone (TSH) 1.41 uIU/mL (0.358-3.74)
== END ==
PROVIDERS: Family Provider Family Medicine; PCP Family Medicine; Referring Provider Family Medicine; Visit Provider Family Medicine
DX: R53.83 Other fatigue (principal)
CPT/HCPCS: 36415; 80053; 82306; 82607; 83540; 84443; 85025; 85652

== ENCOUNTER 2019-03-08 11:26 | Emergency (ER) | payer OTHER, SELFPAY ==
[2019-03-08 11:27] VITALS: BP 122/67; PULSE 89; RESP 16; TEMP 36.6; O2SAT 100; BMI 35.4
--- NOTE | 2019-03-08 11:38 | RAD_ITS ---
STUDY: X-RAY - LEFT KNEE REASON FOR EXAM: Female, 34 years old. LEFT KNEE PAIN. NO INJURY. UNABLE TO BEAR WEIGHT FULLY OR STRAIGHTEN. HX OF BILAT KNEES and quot;POPPING OUT and quot; TECHNIQUE: 4 view(s) of the knee. COMPARISON: 12/19/2016 FINDINGS: Normal visualized distal femur. Normal visualized proximal tibia and fibula. Normal proximal tibiofibular articulation. There is trace degenerative arthrosis of the medial femorotibial compartment. There is mild degenerative arthrosis of the lateral femorotibial compartment. There is mild degenerative arthrosis of the patellofemoral articulation. There is a soft tissue prominence in the suprapatellar region suggesting a small volume joint effusion. The soft tissue structures are unremarkable. RAD/Knee 4 or More Views IMPRESSION: Trace joint effusion. Minimal tricompartmental osteoarthrosis. Electronically Signed: Boris Nation MD ([place]) at 12:16 EST , Service support ,
--- NOTE | 2019-03-08 11:39 | ED.DCSUM_ITS ---
History of Present Illness Chief Complaint: Lower Extremity Injury Detail of Chief Complaint: Left knee pain and sore throat Informant: Patient Onset: Days Narrative: Patient presents with 2 complaints. Her primary issue is pain with her left kn ee. She has an issue with chronic intermittent left knee pain. 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 She states 2 days ago she developed right knee pain but does not remember any recent injury. Usually after couple days it goes away but she continues to have significant pain and difficulty with weightbearing. She describes the majority the pain being in the posterior aspect of the knee. She has not had any leg swelling or calf pain. Second complaint is for sore throat. She has had URI symptoms recently and states that she saw her doctor recently who told her she had an inner ear infection. She is not currently on antibiotics. She has not had fever or chills. She does describe a lot of allergies this time of year and has been having difficulty with that. - Past Medical History (1) H/O right knee surgery Status: Chronic Past Medical History - Allergies and Home Meds Allergies/Adverse Reactions: Allergies strawberry [[place]] Allergy (Verified 03/08/19 11:27) Other Primary Care Physician: Armando Schroeder MD [Primary Care Provider] - Surgical History: no surgical history, - - Right knee Lives: With Family Smoking Status: Former smoker Review of Systems General: Denies: Chills, Fever Eyes: Denies: Visual changes - bilaterally ENT: Reports: Bilateral ear pain, Rhinorrhea, Sore throat Cardiovascular: Denies: Chest pain Respiratory: Denies: Dyspnea, Cough Gastrointestinal: Denies: Abdominal pain, Nausea, Vomiting, Diarrhea Genitourinary: Denies: Dysuria Musculoskeletal: Reports: Extremity Pain Skin: Denies: Rash Neurological: Denies: Headache, Parasthesia Hematologic: Denies: Easy bruising Allergy: Denies: Uticaria Physical Exam Vital Signs/Narrative: Vital Signs Temp Pulse Resp BP Pulse Ox 03/08/19 11:27 97.9 F 89 16 122/67 H 100 Inital Vital Signs reviewed: Yes General: Well nourished, Well developed Head: Normocephalic Eyes: Perrl, EOMI ENT: TM's clear, - - Mild posterior pharyngeal drainage. Tonsillar exam normal with no exudate. Uvula midline. Neck: Supple, - - Mild bilateral anterior cervical lymphadenopathy. Cardiovascular: Regular rate, Regular rhythm Respiratory: No distress, CTA bilaterally Abdomen: Soft, Nontender Extremities: - - Mild tenderness location posterior knee. No palpable mass. No tenderness along the joint line. Patella is labile but in good position. Ligaments are tight on testing. Skin: Normal color Neurological: Alert, Oriented x3 Psychological: Normal affect Diagnostic/Tx/Re-eval Left knee x-ray read by radiology reveals trace joint effusion. Minimal tricompartmental osteoarthritis. - Medical Decision Making Test results discussed with patient. She be placed in Kaveh wrap and given crutches. I will write her prescription for naproxen. She is referred to Dr. Sellers, on-call for orthopedics. ED Disposition - Plan for ED Patient: Disposition: Home or Assisted Living Diagnosis: Knee sprain Instructions: Knee Sprain Prescriptions: Naproxen [Naprosyn] 500 mg PO BID PRN PRN #20 tab PRN Reason: Pain Score 4-10/10 Transmission Status: Pending to [facility] Referrals: Armando Schroeder MD [Primary Care Provider] - Venkatesh Sellers MD [STAFF PHYSICIAN] - 1 Week if not improving
== END 2019-03-08 12:36 | disposition home or self-care (01) ==
PROVIDERS: Emergency Provider Emergency Medicine; PCP Family Medicine
DX: S83.92XA Sprain of unspecified site of left knee, initial encounter (principal); M17.12 Unilateral primary osteoarthritis, left knee; X58.XXXA Exposure to other specified factors, initial encounter; Y93.9 Activity, unspecified; Y92.9 Unspecified place or not applicable; J02.9 Acute pharyngitis, unspecified; H92.03 Otalgia, bilateral; J34.89 Other specified disorders of nose and nasal sinuses; R59.0 Localized enlarged lymph nodes; Z87.891 Personal history of nicotine dependence
CPT/HCPCS: 73564; 99283

== ENCOUNTER → 2019-10-07 09:40 | Outpatient (CLI) | payer OTHER, SELFPAY ==
--- NOTE | 2019-10-07 09:48 | RAD_ITS ---
STUDY: X-RAY - LUMBAR SPINE REASON FOR EXAM: Female, 34 years old. PAIN IN LOWER BACK RADIATING DOWN INTO RIGHT LEG WITH NUMBNESS. PATIENT STATES SHE HAS FALLEN A COUPLE OF TIMES BEFORE. NO RECENT INJURY. TECHNIQUE: 5 view(s) of the lumbar spine were obtained. COMPARISON: None FINDINGS: Normal lumbar lordosis. There is no substantial scoliosis. There is a normal alignment of the vertebrae. There is endplate spondylosis at T12 and L1. There is moderate narrowing of the L4-5 disc space. There is no demonstrated fracture. The soft tissue structures are unremarkable. RAD/L/S Spine Min 4 Views IMPRESSION: Endplate spondylosis at T12 and L1. Moderate narrowing of the L4-5 disc space. Electronically Signed: Kunal Gallo MD at 17:15 EDT , Service support ,
[2019-10-07 12:41] LABS: Absolute Lymphocyte Count 2.37 X10^3/uL (0.83-4.51); Absolute Neutrophil Count 4.6 X10^3/uL (2.0-7.7); Basophil# 0.06 X10^3/uL; Basophil% 0.7 % (0-1); Eosinophil# 0.47 X10^3/uL; Eosinophils% 5.8 % (0-5); Hematocrit 41.9 % (37-47); Hemoglobin 13.7 g/dL (12.0-15.0); Lymphocyte # 2.37 X10^3/ul (4.0); Lymphocyte % 29.4 % (19-41); Mean Corp Hgb Conc 32.7 g/dL (32-36); Mean Corpuscular Hgb 31.5 pg (27.0-32.0); Mean Corpuscular Volume 96.3 fL (81-99); Mean Platelet Vol. 10.8 fl (6.2-12.0); Monocyte% 6.2 % (0-10); NRBC Flagged by Analyzer 0 % (0-5); Neutrophil # 4.63 X10^3/uL (2.7-7.7); Neutrophil % 57.7 % (47-70); Platelet Count 283 K/mm3 (150-450); RBC Distribution Width SD 46.1 fl (35.1-43.9); Red Blood Count 4.35 M/mm3 (4.2-5.4); White Blood Count 8.1 K/mm3 (4.4-11.0)
[2019-10-07 12:50] LABS: Anion Gap 3 (5-15); BUN 7 mg/dL (7-18); BUN/Creat Ratio 9.7 RATIO (10-20); Calcium,Total 8.3 mg/dL (8.5-10.1); Chloride 108 mmol/L (98-107); Cholesterol 179 mg/dL (200); Creatinine, Serum 0.72 mg/dL (0.55-1.02); EST Glomerular Filtration Rate 98 mL/min (>60); Est Glom Filt Rate - Afr Amer 119 mL/min (>60); Glucose 85 mg/dL (74-106); High Density Lipoprotein 53 mg/dL; Iron 105 ug/dL (50-170); Potassium 3.8 mmol/L (3.5-5.1); Sodium Level 140 mmol/L (136-145); Triglycerides 87 mg/dL; Very Low Density Lipoprotein 17 mg/dL (5-40); Vitamin D,25 Hydroxy 34.3 ng/mL
== END ==
LOC: MTLAB 09:42
PROVIDERS: PCP Family Medicine; Referring Provider Family Medicine; Visit Provider Family Medicine
DX: M54.9 Dorsalgia, unspecified (principal); E61.1 Iron deficiency; E55.9 Vitamin D deficiency, unspecified; Z13.220 Encounter for screening for lipoid disorders; Z13.1 Encounter for screening for diabetes mellitus; F41.9 Anxiety disorder, unspecified
CPT/HCPCS: 36415; 72110; 80048; 80061; 82306; 83540; 85025

== ENCOUNTER → 2020-10-12 17:22 | Outpatient (CLI) | payer OTHER, SELFPAY ==
--- NOTE | 2020-10-12 17:22 | MRI_ITS ---
STUDY: MRI LEFT KNEE REASON FOR EXAM: Female, 35 years old. Pain. Instability. TECHNIQUE: Standardized fat and water weighted pulse sequences were obtained in all 3 orthogonal planes. COMPARISON: None. FINDINGS: Grade 2 cartilage loss at the patellofemoral articulation. Lateral patellar tilt. TT-TG distance measures 14 mm. Chronic lateral patellofemoral retinacular thickening (axial image 11 series 3). Normal medial patellofemoral retinaculum. Mild bone marrow edema at inferior portion of the patella (sagittal image 14 series 5). Trace deep infrapatellar edema (sagittal image 14). Medial compartment articular cartilage preserved. Lateral femoral condyle 1.3 similar osteochondral lesion (coronal image 15 series 6). No acute fracture line. No acute dislocation. No acute cortical destruction. Multiple osteophytes. Medial meniscus intact. Lateral meniscus intact. Small volume joint effusion. Small multiseptated popliteal cyst. Minimal anterior swelling. Normal medial collateral ligamentous complex (MCL). Normal distal semimembranosus, gracilis and semitendinosus tendons. Normal proximal tibiofibular articulation. Normal lateral collateral (fibular) ligament. Normal popliteus tendon. Normal biceps femoris tendon. Normal quadriceps tendon. Normal patellar tendon. Normal Hoffa''s fat pad. MRI/Lower Ext Joint Only (Routine) IMPRESSION: Mild patellofemoral cartilage loss with mild lateral patellar tilt and chronic LPFL thickening Mild inferior patellar bone marrow edema and trace deep infrapatellar edema Lateral femoral condyle osteochondral lesion Small joint effusion, small septated popliteal cyst and minimal anterior swelling Electronically Signed: Coleman Chiu DO at 9:49 EDT Tel , Service support ,
== END ==
LOC: MRI 17:22
PROVIDERS: PCP Family Medicine; Visit Provider Orthopaedic Surgery
DX: S83.105A Unspecified dislocation of left knee, initial encounter (principal); M25.362 Other instability, left knee; M25.562 Pain in left knee
CPT/HCPCS: 73721

== ENCOUNTER → 2021-06-09 | Outpatient (CLI) | payer BC, SELFPAY ==
[2021-06-15 20:36] LABS: HPV APTIMA, High Risk Negative (Negative)
== END | disposition home or self-care (01) ==
LOC: LABSPEC 13:32
PROVIDERS: PCP Family Medicine; Visit Provider Obstetrics & Gynecology
DX: Z12.4 Encounter for screening for malignant neoplasm of cervix (principal)
CPT/HCPCS: 87624; 88175; G0145

== ENCOUNTER 2021-08-31 18:00 | Outpatient (RCR) | payer BC, OTHER, SELFPAY ==
--- NOTE | 2020-12-27 16:19 | HP.PTEVAL_ITS ---
Patient's Visit Information YOANNA NORTON is a 35 year old F referred to Physical Therapy by LANRE CHRISTINE with a diagnosis of L knee arthroscopy- chondroplasty, MPFL recon, tibial tubercle osteotomy. Date of Evaluation: 12/27/20 Physical Therapist: Federico Marcos PT, ATC - Visit Plan Frequency: 2-3x /Week Duration: 4-6 Weeks Plan: Follow protocol for Knee arthroscopy. CP for pain - Subjective DOS: 12/19/20. Pt reports she had L knee arthroscopy with chondroplasty performed at that time. Pt also had tibial tubercle osteotomy and MPFL reconstruction. Pt reports she was told the only thing she is not allowed to do at this time is WB. Pt reports she is still in a lot of pain at this time. Pt reports significant sleep difficulty at this time secondary to pain. Pt reports she feels like her L knee is just always throbbing. 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 Pt only has 3 stairs at home to negotiate. Pt reports she is off of work on FMLA for approximately 10 weeks. Pt reports no L LE tingling or numbness at this time. 6/ 10 pain while sitting here at rest, increases to 9/10 at worst - Pain L knee Pain Intensity (Out of 10): 6 Pain Intensity Range: 9 - Objective Neuro: B LE sensation is WNL to light touch. Girth at joint line: R knee 39 cm, L knee 46 cm. ROM: R knee 0-7-130, L knee 0-15 degrees and painful. MMT: R knee flex= 5/5, ext 4/5. L knee not tested this date secondary to pain. Gait: Pt is able to ambulate approximately 120 feet from waiting room until eval rizzo until noting she was very tired. - Balance/Special Test Scores Lower Extremity Functional Score: 2 - Goals Goal 1:: Decrease L knee pain x 50% to aid with sleep Goal Time Frame: 6-8 Weeks Goal 2:: Increase L knee ROM x 50 degrees to aid with restoring a normalized gait pattern Goal Time Frame: 6-8 Weeks Goal 3:: Increase L knee strength x 1 grade to aid with stair negotiation Goal Time Frame: 6-8 Weeks Goal 4:: I with HEP Goal Time Frame: 6-8 Weeks - Rehabilitation Potential Physical Therapy Diagnosis: Pt has L knee weakness, limited ROM, and pain secondary to L knee arthroscopy Rehabilitation Potential: Good - Anticipated Interventions Thank you for the opportunity to evaluate your patient. For Medicare and Medicare HMO plans, please review the plan of care and approve it. It will need to be FAXED BACK to us at [phone] for Medicare purposes. For Medicare only, by signing this I certify the plan of care. Please let me know if there are questions or concerns regarding this plan of care. Physician Signature: Date:
--- NOTE | 2021-02-06 17:17 | HP.PTREVAL ---
LANRE CHRISTINE, It has been my pleasure to treat YOANNA NORTON over the last 7 visits for L knee arthroscopy- chondroplasty, MPFL recon, tibial tubercle osteotomy. Please see the progress note below for an update on the physical therapy plan of care! Subjective: I have been off due to my family being ill Objective/Function: L knee pain ranges from 3-7/10. L knee ROM 0-10-62. L knee MMT: 3-/5 and painful. Pt is progressing but continues to lack functional strength and ROM Plan Plan: Cont to progress Balance/Gait/Functional tests - Balance/Special Test Scores Lower Extremity Functional Score: 26 Goals Goal 1:: Decrease L knee pain x 50% to aid with sleep Goal Time Frame: 6-8 Weeks Goal Progress: Progressing Goal 2:: Increase L knee ROM x 50 degrees to aid with restoring a normalized gait pattern Goal Time Frame: 6-8 Weeks Goal Progress: Progressing Goal 3:: Increase L knee strength x 1 grade to aid with stair negotiation Goal Time Frame: 6-8 Weeks Goal Progress: Progressing Goal 4:: I with HEP Goal Time Frame: 6-8 Weeks Goal Progress: Progressing Anticipated Interventions Please do not hesitate to contact me at [phone] by phone or if you have questions or concerns regarding this new plan of care! Sincerely, Federico Marcos, PT, ATC
--- NOTE | 2021-06-12 17:37 | HP.PTREVAL ---
LANRE CHRISTINE, It has been my pleasure to treat YOANNA NORTON over the last 28 visits for L knee arthroscopy- chondroplasty, MPFL recon, tibial tubercle osteotomy. Please see the progress note below for an update on the physical therapy plan of care! Subjective: Pt reports pain is mild today. Objective/Function: Pt reports L knee pain 2/10. L knee ROM: 0-120. L knee MMT: flex= 4/5, ext= 3+/5. Pt is progressing well toward Rx goals but continues to lack functional strength for IADL's Plan Plan: Continue to focus on strengthening of L LE and core at this time Balance/Gait/Functional tests - Balance/Special Test Scores Lower Extremity Functional Score: 48 Goals Goal 1:: Decrease L knee pain x 50% to aid with sleep Goal Time Frame: 6-8 Weeks Goal Progress: Progressing Goal 2:: Increase L knee ROM x 50 degrees to aid with restoring a normalized gait pattern Goal Time Frame: 6-8 Weeks Goal Progress: Progressing Goal 3:: Increase L knee strength x 1 grade to aid with stair negotiation Goal Time Frame: 6-8 Weeks Goal Progress: Progressing Goal 4:: I with HEP Goal Time Frame: 6-8 Weeks Goal Progress: Progressing Anticipated Interventions Please do not hesitate to contact me at [phone] by phone or if you have questions or concerns regarding this new plan of care! Sincerely, Federico Marcos, PT, ATC
--- NOTE | 2021-08-03 17:58 | HP.PTREVAL ---
LANRE CHRISTINE, It has been my pleasure to treat YOANNA NORTON over the last 34 visits for L knee arthroscopy- chondroplasty, MPFL recon, tibial tubercle osteotomy. Please see the progress note below for an update on the physical therapy plan of care! Subjective: Pt reports she is still limited with prolonged ambulation, squatting, and stair negotiation. Objective/Function: L knee pain ranges from 3-5/10 currently. L knee ROM: 0-125 degrees. L knee MMT: L knee flex= 5/5, ext= 3/5. Pt is I with HEP Plan Plan: Follow up in 4 weeks. Pt to discharge if no pain Balance/Gait/Functional tests - Balance/Special Test Scores Lower Extremity Functional Score: 57 Goals Goal 1:: Decrease L knee pain x 50% to aid with sleep Goal Time Frame: 6-8 Weeks Goal Progress: Goal Met Goal 2:: Increase L knee ROM x 50 degrees to aid with restoring a normalized gait pattern Goal Time Frame: 6-8 Weeks Goal Progress: Goal Met Goal 3:: Increase L knee strength x 1 grade to aid with stair negotiation Goal Time Frame: 6-8 Weeks Goal Progress: Progressing Goal 4:: I with HEP Goal Time Frame: 6-8 Weeks Goal Progress: Goal Met Anticipated Interventions Please do not hesitate to contact me at [phone] by phone or if you have questions or concerns regarding this new plan of care! Sincerely, Federico Marcos, PT, ATC
--- NOTE | 2021-08-31 18:23 | HP.PTDCSUM ---
It has been my pleasure to treat YOANNA NORTON referred by LANRE CHRISTINE, with the diagnosis of L knee arthroscopy- chondroplasty, MPFL recon, tibial tubercle osteotomy for a total of 35 visit(s). Discharge Date: Please see the following information for a summary of their discharge status. Subjective: Pt reports she followed up her Dr. Pt reports she needs to either have 2 more surgeries, or gel injections at this time. L knee Pain Intensity (Out of 10): 2 % Improvement: 88 Objective/Function: L knee pain 2/10. L knee ROM 0-125 degrees. L knee MMT flex 5/5, ext 3/5. Pt is I with HEP Goal 1:: Decrease L knee pain x 50% to aid with sleep Goal Progress: Goal Met Goal 2:: Increase L knee ROM x 50 degrees to aid with restoring a normalized gait pattern Goal Progress: Goal Met Goal 3:: Increase L knee strength x 1 grade to aid with stair negotiation Goal Progress: Progressing Goal 4:: I with HEP Goal Progress: Goal Met Plan: Discharge to [facility] If there are questions or concerns regarding this patient's physical therapy, please feel free to call me at [phone]. Thank you for the referral of this patient. Sincerely, Federico Marcos, PT, ATC Balance/Gait/Functional tests - Balance/Special Test Scores Lower Extremity Functional Score: 57
== END 2021-08-31 19:00 | disposition home or self-care (01) ==
LOC: PT 18:00
PROVIDERS: PCP Family Medicine
DX: M23.92 Unspecified internal derangement of left knee (principal)
CPT/HCPCS: 97110; 97140; 97161; 97164

== ENCOUNTER → 2023-12-10 | Outpatient (CLI) | payer MEDICAID, SELFPAY | END | disposition home or self-care (01) | LOC: LABSPEC 15:14 | PROVIDERS: PCP Family Medicine | DX: J11.1 Influenza due to unidentified influenza virus with other respiratory manifestations (principal) ==

== ENCOUNTER → 2024-08-12 | Outpatient (CLI) | payer MEDICAID, SELFPAY ==
[2024-08-12 18:32] LABS: Microalbumin,Random Urine < 12.0 mg/L (NO RANGE EST.)
[2024-08-12 19:08] LABS: AST(SGOT) 22 U/L (<=31); Alanine Aminotransfer ALT/SGPT 23 U/L (<=34); Albumin, Serum 4.1 g/dL (3.5-5.0); Alkaline Phosphatase 72 U/L (35-104); Anion Gap 9 (5-15); BUN 7 mg/dL (4-19); BUN/Creat Ratio 9.9 RATIO (10-20); Calcium,Total 9.1 mg/dL (7.6-11.0); Carbon Dioxide 24.1 mmol/L (21.0-32.0); Chloride 105 mmol/L (98-108); Ferritin 50 ng/mL (22-378); Globulin 2.8 g/dL (2.2-4.2); Glucose 101 mg/dL (70-99); Potassium 3.8 mmol/L (3.3-5.1); Vitamin B12 647 pg/mL (180-914); Vitamin D,25 Hydroxy 20.3 ng/mL (30-100)
[2024-08-12 19:20] LABS: Hematocrit 41.6 % (37-47); Hemoglobin 13.6 g/dL (12.0-15.0); Immature Granulocytes Count 0.020 X10^3/uL (0.0-0.0); Mean Corp Hgb Conc 32.7 g/dL (32-36); Mean Corpuscular Volume 93.3 fL (81-99); Mean Platelet Vol. 11.1 fl (6.2-12.0); NRBC Flagged by Analyzer 0 % (0-5); Platelet Count 275 K/mm3 (150-450); RBC Distribution Width CV 13.7 % (11.6-14.6); RBC Distribution Width SD 46.8 fl (35.1-43.9); Red Blood Count 4.46 M/mm3 (4.2-5.4); White Blood Count 8.3 K/mm3 (4.4-11.0)
[2024-08-12 19:21] LABS: CRP < 3.00 mg/L (0.0-3.0)
[2024-08-12 19:34] LABS: Iron 70 ug/dL (50-170); Uric Acid 3.1 mg/dL (2.6-6.0)
[2024-08-14 14:08] LABS: ANTINUCLEAR ANTIBODIES DIRECT Negative (Negative)
== END | disposition home or self-care (01) ==
LOC: MTLAB 14:28
PROVIDERS: PCP Family Medicine; Referring Provider Family Medicine; Visit Provider Family Medicine
DX: E61.1 Iron deficiency (principal); M25.50 Pain in unspecified joint
CPT/HCPCS: 36415; 80053; 82043; 82306; 82607; 82728; 83540; 84443; 84550; 85025; 85652; 86038; 86140; 86431